=== PATIENT | male | born 1965 | race Caucasian/White ===

== ENCOUNTER → 2019-09-07 | Outpatient (CLI) | payer SELFPAY ==
[~2019-09-07] MED LIST: CEPH500 PO; CYCL10 PO; GLUC500; HYDACE5 PO; NAPR500 PO
== END | disposition home or self-care (01) ==
LOC: LAB 13:35 → LAB SHORT 13:35
DX: L08.9 Local infection of the skin and subcutaneous tissue, unspecified (principal)
CPT/HCPCS: 87070; 87077; 87147; 87186; 87205

== ENCOUNTER 2021-02-11 18:45 | Emergency (ER) | payer OTHER, BC ==
[~2021-02-11] VITALS: Ht 175.3 cm; Wt 99.8 kg
[2021-02-11] MEDS ORDERED: Roxicodone5 MG PO (22:54)
== END 2021-02-11 23:30 | disposition home or self-care (01) ==
LOC: ER 18:45
DX: S12.501A Unspecified nondisplaced fracture of sixth cervical vertebra, initial encounter for closed fracture (principal); S01.01XA Laceration without foreign body of scalp, initial encounter; S60.221A Contusion of right hand, initial encounter; Z23 Encounter for immunization; V43.52XA Car driver injured in collision with other type car in traffic accident, initial encounter
CPT/HCPCS: 12002; 70450; 70498; 72040; 73130; 90471; 90714; 96374; 99284-25; A9270; J1885; L0160; Q9967

== ENCOUNTER 2021-05-16 14:52 | Emergency (ER) | payer BC ==
[~2021-05-16] VITALS: Ht 175.3 cm; Wt 93.4 kg
[~2021-05-16 14:52] MED LIST changes: +NAPR220 PO; +Roxicodone5 MG PO; +SILD25T PO
[2021-05-16 15:59] LABS: BASOPHILS ABSOLUTE AUTO 0.07 K/mm3 (0.00-0.23); BASOPHILS PERCENT AUTO 1 % (0-2); EOSINOPHILS ABSOLUTE AUTO 0.19 K/mm3 (0.00-0.68); EOSINOPHILS PERCENT AUTO 3 % (0-6); Hemoglobin 12.4 g/dL (13.5-17.5); IMMATURE GRAN ABSOLUTE AUTO 0.09 K/mm3 (0.00-0.10); IMMATURE GRAN PERCENT AUTO 1 % (0-1); LYMPHOCYTES ABSOLUTE AUTO 1.84 K/mm3 (0.84-5.20); LYMPHOCYTES PERCENT AUTO 26 % (21-46); MONOCYTES ABSOLUTE AUTO 0.85 K/mm3 (0.16-1.47); MONOCYTES PERCENT AUTO 12 % (4-13); Mean Corpuscular HGB 30.2 pg (26.0-34.0); Mean Corpuscular HGB Conc 32.6 g/dL (31.5-36.5); Mean Corpuscular Volume 93 fL (80-100); NEUTROPHILS ABSOLUTE AUTO 4.13 K/mm3 (1.96-9.15); NEUTROPHILS PERCENT AUTO 58 % (41-73); Platelet Count 347 K/mm3 (150-400); RDW Coefficient Variation 19.1 % (11.7-14.2); RDW Standard Deviation 64.7 fL (35.1-46.3); White Blood Cell Count 7.17 K/mm3 (4.00-11.30)
[2021-05-16 16:14] LABS: Albumin, Blood 2.8 g/dL (3.4-5.0); Albumin/Globulin Ratio 0.5 (0.8-1.8); Alk Phos 142 U/L (50-136); Anion Gap 4 mmol/L (6-16); Aspartate Aminotrans (AST/SGOT 960 U/L (12-37); Bilirubin, Direct 7.1 mg/dL (0.0-0.3); Bilirubin, Indirect 1.9 mg/dL (0.1-0.7); Blood Urea Nitrogen 14 mg/dL (8-24); Bun/Creatinine Ratio 18.2 (12.0-20.0); CO2, Blood 23 mmol/L (21-32); Calcium, Blood 8.6 mg/dL (8.5-10.1); Chloride, Blood 108 mmol/L (98-108); Creatinine, Blood 0.77 mg/dL (0.60-1.20); Globulin, Blood 5.1 g/dL (2.2-4.0); Glomerular Filtration Rate >60 (60-); Glucose, Blood 94 mg/dL (70-99); Potassium, Blood 3.7 mmol/L (3.5-5.5); Sodium, Blood 135 mmol/L (136-145); Total Protein, Blood 7.9 g/dL (6.4-8.2)
[2021-05-16 16:16] LABS: Alanine Aminotransfer (ALT/SGP 1419 U/L (12-78)
[2021-05-16 16:37] LABS: International Normalized Ratio 1.26
== END 2021-05-16 18:32 | disposition home or self-care (01) ==
LOC: ER 14:52
PROVIDERS: Physician Assistant
DX: R16.0 Hepatomegaly, not elsewhere classified (principal); R79.89 Other specified abnormal findings of blood chemistry
CPT/HCPCS: 36415; 76705; 80048; 80076; 85025; 85610

== ENCOUNTER 2021-07-05 08:27 | Day surgery (SDC) | payer BC ==
[~2021-07-05] VITALS: Ht 175.3 cm; Wt 95.5 kg
[~2021-07-05 08:27] MED LIST changes: +PRED20 PO
--- NOTE | 2021-07-05 10:12 | NUR ---
07/05/21 Oliva2 Rochelle Canales History, Chart, Medications and Allergies reviewed before start of procedure. Patient confirms NPO status and agrees with scheduled surgery. 3-LEAD EKG REVIEWED WITH PHYSICIAN PRIOR TO START OF PROCEDURE. MONITOR INTACT WITH CONTINUOUS PULSE OXIMETRY AND INTERMITTENT BP. PATIENT DETERMINED TO BE ASA APPROPRIATE FOR PROPOFOL SEDATION PRIOR TO START OF PROCEDURE BY
--- NOTE | 2021-07-05 10:17 | NUR ---
PT STATES THAT HE HAS TESTED POSITIVE FOR COVID-19 WITHIN THE LAST 90 DAYS. NO COVID-19 TEST OR VACCINATION REQUIRED.
--- NOTE | 2021-07-05 10:18 | NUR ---
History, Chart, Medications and Allergies reviewed before start of procedure. Patient confirms NPO status and agrees with scheduled surgery. Patient States Post-Procedure ride home has been arranged with significant other. Patient reports taking all of colon prep with clear results.
--- NOTE | 2021-07-05 11:19 | NUR ---
Patient up to Ambulate independently. Gait steady. Discharge instructions reviewed with patient. Patient verbalizes understanding. Copy given to patient to take home, [facility]. Patient States Post-Procedure ride home has been arranged. Discharged via wheelchair to private car for ride home.
== END 2021-07-05 11:19 | disposition home or self-care (01) ==
LOC: ORSCMMR 08:27 → ORD 10:00 → ORSCMMR 11:19
PROVIDERS: Surgery
PROC: 0DBH8ZX Excision of Cecum, Via Natural or Artificial Opening Endoscopic, Diagnostic (ICD-10-PCS; principal; 2021-07-05 10:00)
PROC: 0DBN8ZX Excision of Sigmoid Colon, Via Natural or Artificial Opening Endoscopic, Diagnostic (ICD-10-PCS; principal; 2021-07-05 10:00)
DX: K62.5 Hemorrhage of anus and rectum (principal); D12.0 Benign neoplasm of cecum; K63.5 Polyp of colon; K64.8 Other hemorrhoids; K57.30 Diverticulosis of large intestine without perforation or abscess without bleeding; Q28.2 Arteriovenous malformation of cerebral vessels; Z79.899 Other long term (current) drug therapy
CPT/HCPCS: 88305; J2704; J7120

== ENCOUNTER → 2022-03-22 | Outpatient (CLI) | payer BC ==
[2022-03-22 13:32] LABS: BASOPHILS ABSOLUTE AUTO 0.11 K/mm3 (0.00-0.23); BASOPHILS PERCENT AUTO 1 % (0-2); EOSINOPHILS ABSOLUTE AUTO 0.26 K/mm3 (0.00-0.68); EOSINOPHILS PERCENT AUTO 3 % (0-6); Hematocrit 44.7 % (37.0-53.0); Hemoglobin 14.8 g/dL (13.5-17.5); IMMATURE GRAN ABSOLUTE AUTO 0.09 K/mm3 (0.00-0.10); IMMATURE GRAN PERCENT AUTO 1 % (0-1); LYMPHOCYTES ABSOLUTE AUTO 2.63 K/mm3 (0.84-5.20); LYMPHOCYTES PERCENT AUTO 29 % (21-46); MONOCYTES ABSOLUTE AUTO 0.81 K/mm3 (0.16-1.47); MONOCYTES PERCENT AUTO 9 % (4-13); Mean Corpuscular HGB Conc 33.1 g/dL (31.5-36.5); Mean Corpuscular Volume 91 fL (80-100); Mean Platelet Volume 9.3 fL (9.1-12.4); NEUTROPHILS ABSOLUTE AUTO 5.12 K/mm3 (1.96-9.15); NEUTROPHILS PERCENT AUTO 57 % (41-73); Platelet Count 258 K/mm3 (150-400); RDW Coefficient Variation 12.5 % (11.7-14.2); RDW Standard Deviation 41.6 fL (35.1-46.3); Red Blood Cell Count 4.93 M/mm3 (4.30-5.90); White Blood Cell Count 9.02 K/mm3 (4.00-11.30)
[2022-03-22 16:03] LABS: Albumin, Blood 3.9 g/dL (3.4-5.0); Albumin/Globulin Ratio 1.1 (0.8-1.8); Bilirubin, Total 0.5 mg/dL (0.1-1.0); Calcium, Blood 9.3 mg/dL (8.5-10.1); Creatinine, Blood 0.89 mg/dL (0.60-1.20); Globulin, Blood 3.6 g/dL (2.2-4.0); Total Protein, Blood 7.5 g/dL (6.4-8.2)
== END | disposition home or self-care (01) ==
LOC: LAB SHORT 12:44
PROVIDERS: Student in an Organized Health Care Education/Training Program
DX: K75.4 Autoimmune hepatitis (principal)
CPT/HCPCS: 36415; 80053; 82306; 85025

== ENCOUNTER 2024-06-16 09:51 | Day surgery (SDC) | payer BC ==
[~2024-06-16] VITALS: Ht 175.3 cm; Wt 103.0 kg
[~2024-06-16 09:51] MED LIST changes: +AZAT50 PO; +NS 0 ML IV ONE; +PRED5 PO
[2024-06-16] MEDS ORDERED: propofoL 0 ML IV ONE (09:59)
[2024-06-16] MEDS ORDERED: Midazolam HCl 1MG / ML 2ML Vial ONE (09:59)
[2024-06-16] MEDS ORDERED: Ketorolac Tromethamine 30mg Vial ONE (10:13)
[2024-06-16] MEDS ORDERED: Dexamethasone Sod Phos 10 MG/ML 1ML VIAL ONE (10:13)
[2024-06-16] MEDS ORDERED: FentaNYL Citrate 50 MCG/ML 2 ML Injection ONE (10:13)
[2024-06-16] MEDS ORDERED: Ondansetron HCl 2 MG / ML 2ML Vial ONE (10:13)
[2024-06-16] MEDS ORDERED: Lactated Ringer's 1,000 ML IV ONE ×2 (10:18→10:20)
[2024-06-16] MEDS ORDERED: propofoL 20 ML IV ONE (10:33)
[2024-06-16] MEDS ORDERED: Lidocaine HCl 2% 10 ML SDA INJ ONE (10:38)
[2024-06-16 11:26] VITALS: BP 153/91
== END 2024-06-16 11:55 | disposition home or self-care (01) ==
LOC: ORSCSDS 09:51
PROVIDERS: Orthopaedic Surgery
PROC: 01N40ZZ Release Ulnar Nerve, Open Approach (ICD-10-PCS; principal; 2024-06-16 11:15)
PROC: 01N54ZZ Release Median Nerve, Percutaneous Endoscopic Approach (ICD-10-PCS; principal; 2024-06-16 11:15)
DX: G56.21 Lesion of ulnar nerve, right upper limb (principal); G56.01 Carpal tunnel syndrome, right upper limb; Z87.891 Personal history of nicotine dependence; Z79.899 Other long term (current) drug therapy
CPT/HCPCS: J1100; J1885; J2003; J2250; J2405; J2704; J3010; J7040; J7120

== ENCOUNTER 2024-07-07 06:45 | Day surgery (SDC) | payer BC ==
[~2024-07-07] VITALS: Ht 175.3 cm; Wt 106.5 kg
[~2024-07-07 06:45] MED LIST changes: +Lactated Ringer's 1,000 ML IV ONE; -NS 0 ML IV ONE
[2024-07-07] MEDS ORDERED: CeFAZolin Sodium 2,000 MG VIAL ONE (06:54)
[2024-07-07] MEDS ORDERED: Lidocaine HCl 2% 10 ML SDA ONE (07:01)
[2024-07-07] MEDS ORDERED: Lactated Ringer's 1,000 ML IV ONE (07:16)
[2024-07-07] MEDS ORDERED: Midazolam HCl 1MG / ML 2ML Vial ONE (08:06)
[2024-07-07] MEDS ORDERED: propofoL 20 ML IV ONE (08:06)
[2024-07-07] MEDS ORDERED: FentaNYL Citrate 50 MCG/ML 2 ML Injection ONE (08:06)
[2024-07-07] MEDS ORDERED: Ondansetron HCl 2 MG / ML 2ML Vial ONE (08:07)
[2024-07-07] MEDS ORDERED: Dexamethasone Sod Phos 10 MG/ML 1ML VIAL ONE (08:07)
[2024-07-07 09:12] VITALS: BP 138/81
[2024-07-07] MEDS ORDERED: HYDROcodone 5-APAP 325 TAB ONE (09:33)
[2024-07-07] MEDS ORDERED: OxyCODONE HCL 5 MG TAB ONE (09:50)
--- NOTE | 2024-07-07 10:42 | NUR ---
07/07/24 1042 Bekah Ramirez [id number] REPORT RECEIVED FROM KEILY ESPARZA. PT SITTING COMFORTABLY IN RECLINER, AT BEDSIDE. 1024 PT STABLE, NO C.O NAUSE, PO PAIN MED GIVE 1000 BY KEILY ESPARZA IV D/C'D 1020. PT D/C'D TO HOME WITH .
== END 2024-07-07 10:24 | disposition home or self-care (01) ==
LOC: ORSCSDS 06:45
PROVIDERS: Orthopaedic Surgery
PROC: 01N54ZZ Release Median Nerve, Percutaneous Endoscopic Approach (ICD-10-PCS; principal; 2024-07-07 08:15)
PROC: 01N40ZZ Release Ulnar Nerve, Open Approach (ICD-10-PCS; principal; 2024-07-07 08:15)
DX: G56.22 Lesion of ulnar nerve, left upper limb (principal); G56.02 Carpal tunnel syndrome, left upper limb; Z79.899 Other long term (current) drug therapy
CPT/HCPCS: A9270; J0690; J1100; J2003; J2250; J2405; J2704; J3010; J7120